=== PATIENT | male | born 1990 ===

== ENCOUNTER 2022-08-01 12:48 | Emergency (ER) | payer SELFPAY ==
[~2022-08-01] VITALS: Ht 162 cm; Wt 68.0 kg
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
[2022-08-01] MEDS ORDERED: NS IV 1000 ML 1,000 ML IV SCH (13:00)
[2022-08-01 13:09] LABS: BASOPHILS # (AUTO) 0.1 10^3/uL (0.0-0.1); BASOPHILS % (AUTO) 1 % (0-10); EOSINOPHILS # (AUTO) 0.1 10^3/uL (0.0-0.3); EOSINOPHILS % (AUTO) 1 % (0-10); HEMATOCRIT 42 % (40-54); HEMOGLOBIN 14.9 g/dL (13.3-17.7); LYMPHOCYTES # (AUTO) 2.8 10^3/uL (1.0-4.0); LYMPHOCYTES % (AUTO) 33 % (12-44); MEAN CORPUSCULAR HEMOGLOBIN 31 pg (25-34); MEAN CORPUSCULAR HGB CONC 36 g/dL (32-36); MEAN CORPUSCULAR VOLUME 88 fL (80-99); MEAN PLATELET VOLUME 9.2 fL (9.0-12.2); MONOCYTES # (AUTO) 0.6 10^3/uL (0.0-1.0); MONOCYTES % (AUTO) 7 % (0-12); NEUTROPHILS % (AUTO) 58 % (42-75); PLATELET COUNT 327 10^3/uL (130-400); WHITE BLOOD COUNT 8.6 10^3/uL (4.3-11.0)
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
[2022-08-01 13:22] LABS: ALBUMIN 4.5 GM/DL (3.2-4.5)
[2022-08-01 13:23] LABS: POTASSIUM 3.5 MMOL/L (3.6-5.0)
[2022-08-01 13:24] LABS: CALCIUM 8.4 MG/DL (8.5-10.1)
[2022-08-01 13:25] LABS: TOTAL PROTEIN 7.6 GM/DL (6.4-8.2)
[2022-08-01 13:27] LABS: BILIRUBIN,TOTAL 0.3 MG/DL (0.1-1.0)
[2022-08-01 13:29] LABS: CREATININE SERUM 0.87 MG/DL (0.60-1.30)
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
[2022-08-01 14:49] LABS: AMPHETAMINE SCREEN, URINE POSITIVE (NEGATIVE); BARBITURATE SCREEN URINE NEGATIVE (NEGATIVE); BENZODIAZEPINES SCREEN URINE NEGATIVE (NEGATIVE); CANNABINOID SCREEN, URINE NEGATIVE (NEGATIVE); COCAINE SCREEN URINE NEGATIVE (NEGATIVE); METHADONE STAT NEGATIVE (NEGATIVE); OPIATE SCREEN URINE NEGATIVE (NEGATIVE); OXYCODONE STAT NEGATIVE (NEGATIVE); PROPOXYPHENE STAT NEGATIVE (NEGATIVE); TRICYCLIC ANTIDEPRESSANTS SCRE NEGATIVE (NEGATIVE)
[2022-08-01 15:06] VITALS: BP 121/77
== END 2022-08-01 15:06 | disposition home or self-care (01) ==
LOC: ER 12:53
DX: M54.2 Cervicalgia (principal); M25.512 Pain in left shoulder; R00.0 Tachycardia, unspecified; V49.40XA Driver injured in collision with unspecified motor vehicles in traffic accident, initial encounter; Y92.410 Unspecified street and highway as the place of occurrence of the external cause
CPT/HCPCS: 36415; 70450; 71045; 72125; 73030; 80053; 80306; 85025; 93005